=== PATIENT | male | born 1985 | race Caucasian/White ===

== ENCOUNTER 2021-10-15 10:14 | Outpatient (CLI) | payer OTHER, SELFPAY ==
--- NOTE | ~2021-10-15 | US_ITS ---
EXAMINATION: US venous doppler LE RT DATE: 10/15/2021 11:18 INDICATION: Right lower limb swelling. TECHNIQUE: Grayscale ultrasound images without and with compression and Doppler ultrasound images of the right lower extremity veins were obtained. COMPARISON: None. FINDINGS: The visualized portions of right common femoral vein, profunda (deep) femoral vein, femoral vein, pop liteal vein, peroneal veins, posterior tibial veins, and greater saphenous vein outflow are patent. T here are enlarged superficial veins in the lower leg near the ankle. IMPRESSION: 1. No deep venous thrombosis. 2. Varicose veins in the lower leg near the ankle. Reviewed, dictated and finalized at location A.
--- NOTE | ~2021-10-15 | US_ITS ---
EXAMINATION: US art doppler w press LE DATE: 10/15/2021 11:18 INDICATION: Lower limb swelling. TECHNIQUE: Segmental pressures and plethysmographic and Doppler waveforms of the brachial and lower e xtremity arteries were obtained. COMPARISON: None. FINDINGS: Right and left brachial artery pressures of 165 mm Hg and 155 mm Hg, respectively, are concordant (no rmal difference <= 30 mmHg). The right thigh arteries and below-knee artery pressures could not be measured due to inability to cu ff occlude the arteries. The right ankle-brachial index (NIGHAT) is 1.18 (normal >= 0.9-1.0). The right great toe-brachial index (TBI) is 0.61 (normal >= 0.65). Arterial Doppler waveforms are at least trip hasic from common femoral artery to the ankle. The left thigh and below-knee artery pressures could not be measured due to inability to cuff occlude the arteries. The left NIGHAT is 1.10. The left TBI is 0.77. Arterial Doppler waveforms are at least tr iphasic from common femoral artery to the ankle. IMPRESSION: 1. Mildly decreased right TBI and normal ABIs, consistent with mild right-sided arterial occlusive di sease. Reviewed, dictated and finalized at location A. IMPRESSION: 1. Mildly decreased right TBI and normal ABIs, consistent with mild right-sided arterial occlusive disease.
== END 2021-10-15 10:15 | disposition home or self-care (01) ==
LOC: ANHIMG 10:21
PROVIDERS: PCP Nurse Practitioner; Visit Provider Nurse Practitioner
DX: I83.891 Varicose veins of right lower extremity with other complications (principal); R79.89 Other specified abnormal findings of blood chemistry
CPT/HCPCS: 93923; 93971

== ENCOUNTER 2023-07-30 13:29 | Emergency (ER) | payer OTHER, SELFPAY ==
[2023-07-30 14:12] VITALS: BP 147/107; PULSE 103; RESP 18; TEMP 36.5; O2SAT 98
[2023-07-30 19:59] VITALS: BP 147/98; PULSE 82; RESP 16; TEMP 36.1; O2SAT 97
--- NOTE | 2023-07-30 20:33 | PC.NURSE ---
Pt walked out before seeing provider. Pt stated sx have subsided and he was wanting to go home. Pt educated on risks/benefits of leaving. Pt verbalized coming back or contacting 911 if symptoms occur again.
== END 2023-07-30 21:25 | disposition left against medical advice (07) ==
PROVIDERS: PCP Nurse Practitioner
DX: R00.2 Palpitations (principal)
CPT/HCPCS: 99199